=== PATIENT | female | born 1990 | race Caucasian/White ===

== ENCOUNTER 2019-12-29 08:40 | Day surgery (SDC) | payer MEDICAID, SELFPAY ==
[2019-12-29 08:53] VITALS: BP 103/63; PULSE 68; RESP 16; TEMP 36.2; O2SAT 100
--- NOTE | 2019-12-29 09:01 | ANES.PREANE2 ---
Pre-Anesthetic Assessment Pre-Anesthetic Assessment: Height/Weight: Height 1.57 m Weight 77.111 kg Preop Diagnosis: Bilateral carpal tunnel Proposed Procedure: Operation Date: 12/29/19 10:00 Proposed Procedures p Right Carpal Tunnel Release/Left Carpal Tunnel cortisone injection [id number] G56.03(Right) - Edmundo Ohara MD Familial anesthetic complications: None Was Beta Ave taken within 24 hours: N/A Last intake: NPO > 8 hrs Social: Social History: Tobacco Exam: Pre-Anes Outpt Exam: alert, oriented x 3, clear to auscultation bilaterally and regular rate & rhythm Airway: Cervical ROM: WNL MP: 2 Dentition: Partials Anesthetic Plan: ASA status: 2 Anesthesia: MAC and Regional (specify below) Risk of > 500 ml blood loss (7ml/kg in children): No Other Pertinent Information: Last took phentermine on december 23 (approximately 7 days ago) PFSH Anesthesia Female Reproductive History: Date of last menstrual period: 12/07/19 Data Anesthesia Cardiac Studies: No Data to Display
[2019-12-29] MEDS: sodium chloride 0.9% 1,000 ML 30 ML IV (09:19)
[2019-12-29 09:23] LABS: OR HCG Qualitative Urine Negative (Negative)
--- NOTE | 2019-12-29 09:45 | W.PM.OPSUD ---
Surgery/Procedure H&P Update DATE OF PROCEDURE: December 29, 2019 DATE H&P PERFORMED: 12/21/19 H&P UPDATE INFORMATION: I have reviewed H&P completed within last 30 days and No changes to prior documentation PREOP DIAGNOSIS: Bilateral carpal tunnel PLANNED PROCEDURE: Operation Date: 12/29/19 10:00 Proposed Procedures p Right Carpal Tunnel Release/Left Carpal Tunnel cortisone injection [id number] G56.03(Right) - Edmundo Ohara MD
[2019-12-29] MEDS: betamethasone susp 6 mg/mL 5 mL 1.5 MG IM (10:32)
[2019-12-29 10:51] VITALS: BP 111/63; PULSE 69; RESP 16; TEMP 36.2; O2SAT 95
--- NOTE | 2019-12-29 10:55 | P.OP_ITS ---
Operative Report Date of procedure: December 29, 2019 Pre-op Diagnosis: Bilateral carpal tunnel Post-op diagnosis: same Procedure Done: Right carpal tunnel release, injection left carpal tunnel Pathology: none sent Surgeon: Edmundo Ohara Anesthesia: Nerve Block (Husam block) Estimated blood loss (mL): 0 Tourniquet time (min): 31 Complications: None Findings: No masses or space-occupying lesions were seen in the right carpal angeline nicolasa Condition: stable Disposition: same day Procedure: Patient was taken to the operating room and anesthesia provided by the anesthesia service. She was prepped and draped with the arm exposed. A timeout was performed. A 3 cm long incision was made in line with the fourth ray from the distal edge of the carpal tunnel extending proximally. The subcutaneous fat and palmar fascia was divided with a scalpel blade. Under loupe magnification the ulnar neurovascular bundle was identified distally. A hemostat could be passed under the transverse carpal ligament allowing the distal 25% to be divided. A slotted guide was then passed beneath the transverse carpal ligament and the middle 50% divided. Blunt scissors were then passed over the guide freeing the proximal ligament. The tourniquet was deflated. Hemostasis provided with electrocautery. Wound edges were infiltrated with 10 cc of a half percent Marcaine solution. Skin edges were reapproximated with 3-0 Prolene. Sterile dressings were applied. A 27-gauge needle was introduced at the proximal carpal tunnel just ulnar to the palmaris longus tendon.. The carpal tunnel was infiltrated with 1/4 cc of 0.5% Marcaine and 1/4 cc of betamethasone (30mg/5cc) the patient was taken to the recovery room in stable condition
[2019-12-29 11:22] VITALS: BP 114/74; PULSE 61; RESP 18; TEMP 36.2; O2SAT 97
== END 2019-12-29 11:51 | disposition home or self-care (01) ==
PROVIDERS: Anesthesiology; PCP Family Medicine; Visit Provider Orthopaedic Surgery
PROC: (CPT 64721; principal; 2019-12-29 10:00)
DX: G56.03 Carpal tunnel syndrome, bilateral upper limbs (principal)
CPT/HCPCS: 20526; 64721; 12345; 81025; 84703; J0702; J2001; J2250; J2704; J3490; J7030

== ENCOUNTER 2020-04-05 16:42 | Emergency (ER) | payer MEDICAID, SELFPAY ==
--- NOTE | 2020-04-05 16:57 | USCV_ITS ---
Marilu Polanco Age: 29 Gender: F : 1990 Exam Date: 04/05/2020 17:31 Ordering Phys: Kera Sosa MD Technologist: Presley Murcia Exam Location: [facility] – [place] Indication: LUE pain, swelling HISTORY: Left upper extremity swelling and pain. PROCEDURES: Venous duplex imaging was performed in only the left upper extremity. In addition, the basilic vein and cephalic vein. In addition, the radial vein and ulnar vein. FINDINGS: Expansile acute Thrombus is seen in the left cephalic vein extending form the forearm to the wrist. No other areas of DVT or superficial thrombus seen in LUE. CONCLUSIONS Thrombus is seen in the left cephalic vein extending form the forearm to the wrist. Remainder of the vessels in the left upper extremity are patent. Nilo Gaspar MD (Electronically Signed) Final Date: 06 April 2020 11:18 S
--- NOTE | 2020-04-05 18:30 | W.ED.EXTPRO ---
HPI - Extremity Problem General: Chief complaint: Extremity Problem,Nontraumatic Stated complaint: pain in l arm/possible blood clot Time Seen by Provider: 04/05/20 18:30 History of Present Illness: HPI Narrative: Patient is a 29-year-old female comes to the ED with left arm pain. Patient says 2 days ago she started having some pain in her left forearm. Denies any acute trauma or accident to cause pain. 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 Patient was seen a marketing senior recruiter and was put on apixaban 5 mg twice daily since 2014. She stopped taking it a month ago due to cost of medication. Associated symptoms: Deny chest pain, fever(s) or rash Review of Systems Const: Denies: fever(s), chills or fatigue Eyes: Denies: change in vision or eye discomfort ENMT: Denies: throat pain, odynophagia, nasal discharge or nasal congestion Card: Denies: chest pain, palpitations, edema, swelling of feet/ankles, dyspnea on exertion or orthopnea Resp: Denies: dyspnea, productive cough or non-productive cough GI: Denies: abdominal pain, nausea, vomiting, diarrhea, constipation or hematochezia : Denies: flank pain, dysuria or hematuria Musc: Reports: extremity pain (left arm pain-forearm); Denies: neck pain, back pain or extremity swelling Skin/Breast: Denies: rash or new lesions Neuro: Denies: headache(s), numbness in extremities or weakness in extremities [facility] Female Reproductive History: Date of last menstrual period: 12/07/19 Physical Exam Const: COMMON NORMALS: no acute distress, patient oriented x3, healthy appearing and alert GENERAL APPEARANCE: cooperative and comfortable HENMT: COMMON NORMALS: normocephalic HEAD & SCALP: normocephalic MOUTH: Normal oral and palatal mucosa present THROAT: posterior oropharynx normal and uvula midline Eye: COMMON NORMALS: Equal, round and reactive pupils present PUPIL: Yes Equal, round and reactive pupils present Neck/C-Spine: COMMON NORMALS: supple GENERAL: Yes normal visual inspection Resp: COMMON NORMALS: normal respiratory effort, No retractions, No use of accessory muscles and clear to auscultation bilaterally AUSCULTATION: clear to auscultation bilaterally Cardio: COMMON NORMALS: regular rate, regular rhythm, S1 normal heart sound present, S2 normal heart sound present, No gallops present (Cardio), No clicks present (Cardio), No murmurs present (Cardio) and Peripheral pulses 2+ throughout RATE: regular rate RHYTHM: regular rhythm HEART SOUNDS: S1 normal heart sound present and S2 normal heart sound present PERIPHERAL PULSES: Peripheral pulses 2+ throughout GI: COMMON NORMALS: Normal to inspection, nondistended, normoactive bowel sounds present, Soft to palpation, non-tender and no masses PALPATION: Yes Soft to palpation : COMMON NORMALS: Yes no CVA tenderness BLADDER/KIDNEY EXAM: Yes no CVA tenderness Back/Pelvis: COMMON NORMALS: no CVA tenderness Extremity: NARRATIVE EXTREMITY EXAM: Patient has some mild tenderness upon palpation of the dorsal proximal aspect of left forearm. No erythema or warmth. Radial pulse 2+. Neurovascular intact distally. GENERAL: Yes normal exam except as noted Neuro: COMMON NORMALS: patient oriented x3 and moves all extremities SENSORIUM/ORIENTATION: Yes alert Skin: COMMON NORMALS: no rashes or lesions noted GENERAL SKIN EXAM: no rashes or lesions noted and dry skin Course Vital Signs: Vital signs: Vital Signs Temperature 98.2 F 04/05/20 18:35 Pulse Rate 64 04/05/20 19:48 Respiratory Rate 14 04/05/20 19:48 Blood Pressure 108/66 04/05/20 19:48 Pulse Oximetry 99 04/05/20 19:48 MDM - Extremity (Nontraumatic) MDM Narrative: Medical decision making narrative: Patient is a 29-year-old female comes the ED with nontraumatic left forearm pain that started approximately 2 days ago. She has a past medical history of a right upper extremity DVT that occurred in 2014. Patient has been taking Eliquis since. She stopped taking her Eliquis this month due to cost of medication. Physical exam was normal and patient is in no acute distress or pain. Lungs were clear to auscultation bilaterally. Ultrasound venous duplex of left upper extremity-thrombus in the left cephalic vein. Patient was given a dose of Lovenox while here in the ED and sent home with a prescription for Lovenox. She was told to contact her marketing senior recruiter tomorrow morning to discuss being put on different affordable long-term anticoagulant medication. Return to ED precautions given. Patient understood and agree with plan. Imaging Data^: US Vascular: Attestation: I personally reviewed and interpreted this imaging study as follows: Radiologist's impression: Left upper extremity venous duplex?report showed thrombus in the left cephalic vein extending from the forearm to the wrist. no other areas of DVT or superficial thrombus seen in the left upper extremity. Discharge Plan Discharge Patient Disposition: Home Clinical Impression: Acute cephalic vein thrombosis Qualifiers: Laterality: left Qualified Code(s): I82.612 - Acute embolism and thrombosis of superficial veins of left upper extremity Condition: Stable Prescriptions: New enoxaparin 80 mg/0.8 mL syringe 80 mg SUBCUT Q12H 5 Days Qty: 8 RF: 0 No Action Eliquis 5 mg tablet 5 mg PO BID RF: 0 phentermine [Adipex-P] 37.5 mg capsule 37.5 mg PO DAILY RF: 0 Lafe 5-325 mg tablet 1 tab PO Q4H PRN (Reason: pain) Qty: 20 RF: 0 Discharge Orders: Discharge Order (Routine); Ordered 04/05/20 Ordered By: Harrison Beckham Referrals: Mya Burnham MD [Primary Care Provider] - Discharge Diet: Regular Discharge Activity: Resume usual activity Activity Restrictions/Additional Instructions: Follow-up with medical provider as directed. Contact your marketing senior recruiter tomorrow morning to discuss an affordable anticoagulant medication option for long-term use. Take medications as prescribed. Return to the ER or your medical provider if condition worsens. Please read and understand discharge instructions. If any questions, please ask. Discharge Date/Time: 04/05/20 19:50 Coding Level of Care Code ED Rejoiner for Karin Fwd Exam Comprehensive
[2020-04-05 18:35] VITALS: BP 112/76; PULSE 77; RESP 18; TEMP 36.8; O2SAT 97; BMI 30.9
[2020-04-05] MEDS: enoxaparin 120 mg/0.8 mL Syringe SUBCUT (19:32)
[2020-04-05 19:48] VITALS: BP 108/66; PULSE 64; RESP 14; O2SAT 99
== END 2020-04-05 19:50 | disposition home or self-care (01) ==
PROVIDERS: Emergency Provider Physician Assistant; PCP Family Medicine
DX: I82.612 Acute embolism and thrombosis of superficial veins of left upper extremity (principal); Z79.01 Long term (current) use of anticoagulants
CPT/HCPCS: 12345; 93971; 96372; 99281; 99283; J1650

== ENCOUNTER 2022-04-04 17:25 | Emergency (ER) | payer MEDICAID, SELFPAY ==
[2022-04-04 18:34] VITALS: BP 123/75; PULSE 85; RESP 16; TEMP 36.9; O2SAT 98; BMI 35.4
--- NOTE | 2022-04-04 18:46 | USR_ITS ---
PROCEDURE INFORMATION: Exam: US Duplex Left Upper Extremity Veins, Limited Exam date and time: 04/04/2022 8:04 PM Age: 31 years old Clinical indication: Arm, upper; Patient HX: History of pulmonary emboli, beginning 2013. History of multiple bilateral upper extremity dvts beginning 2013. She is taking eliquist now. C/O left lateral neck pain, concern for dvt; Additional info: Left upper extremity swelling and pain TECHNIQUE: Imaging protocol: Real-time Duplex ultrasound of the Left Upper Extremity with 2-D marie scale, color Doppler flow and spectral waveform analysis with image documentation. Limited exam focused on the left upper extremity veins. COMPARISON: No relevant prior studies available. FINDINGS: Left deep veins: Unremarkable. Axillary and brachial veins are patent throughout without thrombus. Normal Doppler waveforms. Normal compressibility and/or augmentation response. Visualized internal jugular and subclavian veins are patent. Left superficial veins: Unremarkable. Visualized cephalic and basilic veins are patent without thrombus. Soft tissues: Unremarkable. US/[place] [id number] IMPRESSION: No evidence of deep vein thrombosis.
[2022-04-04 20:13] LABS: Basophils % 0.4 %; Eosinophils # 0.1 10^3/uL (0.0-0.8); Eosinophils % 1.2 %; Hematocrit 45.7 % (37.0-47.0); Hemoglobin 14.3 g/dL (11.5-15.3); Lymphocytes # 2.7 10^3/uL (0.8-4.8); Lymphocytes % 33.7 %; Mean Corpuscular HGB Conc 31.3 g/dL (30.0-36.0); Mean Corpuscular Hemoglobin 26.6 pg (28.0-34.0); Mean Corpuscular Volume 85.1 fl (81-99); Mean Platelet Volume 9.9 fL (7.4-10.4); Monocytes # 0.6 10^3/uL (0.2-0.9); Monocytes % 6.9 %; Neutrophils % 57.7 %; Nucleated Red Blood Cells % 0 %; Platelet Count 188 10^3/cmm (130-400); Red Blood Count 5.37 10^6/uL (4.1-5.3); Red Cell Distribution Width 12.4 % (12.1-15.1); White Blood Count 8.1 10^3/uL (4.0-10.0)
[2022-04-04 20:24] LABS: INR 1.05 (0.8-1.2)
[2022-04-04 20:39] LABS: Alanine Aminotransferase 18 U/L (0-33); Albumin Level 3.8 g/dL (3.5-5.2); Alkaline Phosphatase 93 U/L (35-105); Blood Urea Nitrogen 7 mg/dL (6-20); Calcium 9.1 mg/dL (8.5-10.5); Carbon Dioxide 21 mmol/L (22-29); Chloride 104 mmol/L (98-107); Globulin 3.7 g/dL (1.3-4.6); Glomerular Filtration Rate 82.6 mL/min (90-130); Glucose 70 mg/dL (65-115); Osmolality Calculated 282 mOsm/kg (285-295); Sodium 138 mmol/L (136-145); Total Bilirubin 0.3 mg/dL (0.15-1.2); Total Protein 7.5 g/dL (6.6-8.7)
[2022-04-04 20:43] LABS: Anion Gap 16.7 (5-19); Aspartate Amino Transferase 18 U/L (0-32); Potassium 3.7 mmol/L (3.5-5.1)
== END 2022-04-04 22:44 | disposition left against medical advice (07) ==
PROVIDERS: Emergency Provider Family Medicine; PCP Family Medicine
DX: Z53.21 Procedure and treatment not carried out due to patient leaving prior to being seen by health care provider (principal)
CPT/HCPCS: 36415; 80053; 85025; 85610; 93971

== ENCOUNTER 2023-05-25 10:29 | Emergency (ER) | payer MEDICAID, SELFPAY ==
[2023-05-25 11:02] VITALS: BP 143/83; PULSE 76; RESP 16; TEMP 36.7; O2SAT 98; BMI 35.4
--- NOTE | 2023-05-25 12:28 | XRR_ITS ---
PROCEDURE INFORMATION: Exam: XR Left Hand Exam date and time: 05/25/2023 12:56 PM Age: 33 years old Clinical indication: Injury or trauma; Other: Crushing accident; Left; Ring finger; Additional info: Tauma left ring finger TECHNIQUE: Imaging protocol: Radiologic exam of the left hand. Views: 1 or 2 views. COMPARISON: No relevant prior studies available. FINDINGS: Bones/joints: There is a comminuted fracture involving the distal tuft of the left 4th digit. There is vertical extension from the distal tuft into the more proximal aspect of the shaft of this phalanx. It does not appear to extend into the D IP joint on these images. No additional fractures are detected. Soft tissues: No radiopaque foreign bodies are detected. XR/XR hand LT 2V [id number] IMPRESSION: Comminuted fracture distal phalanx 4th digit as described.
[2023-05-25] MEDS: clindamycin 150 mg Capsule 300 MG PO (12:42)
[2023-05-25] MEDS: ketorolac 60 mg/2 mL INJ IM (12:43)
--- NOTE | 2023-05-25 13:43 | W.ED.DENTAL ---
HPI - Dental/Oral General: Chief complaint: Dental/Oral Stated complaint: jaw/mouth pain Time Seen by Provider: 05/25/23 12:05 Source: patient Mode of arrival: ambulatory Limitations: no limitations History of Present Illness: This 35-year-old female presents to the ER with tooth ache that started 3 days ago. Pain is located in the right upper tooth. Patient denies fever, nausea or vomiting. She has not seen a dentist in a while because she has no insurance. Patient also reports pain in the left ring finger that started 2 weeks ago. She was attaching a brush hog to the back of a trailer when a metal bar smashed the finger. She has not seen any care provider since then. She wants the finger to be evaluated. Associated symptoms: Denies tongue swelling Review of Systems Const: Denies: chills, body aches or change in appetite Eyes: Denies: change in vision or eye discharge ENMT: Reports: dental pain; Denies: throat pain or nasal discharge Card: Denies: chest pain or lightheadedness : Denies: dysuria Musc: Reports: other (left ring finger pain); Denies: neck pain or back pain Neuro: Denies: headache(s) or weakness in extremities Psych: Denies: depression Hamzah/Lymph: Denies: easy bruising All/Imm: Denies: urticaria, tongue swelling or facial swelling Physical Exam Const: COMMON NORMALS: no acute distress, patient oriented x3, no limitations and alert HENMT: COMMON NORMALS: normocephalic HEAD & SCALP: normocephalic TEETH & GINGIVA: Yes caries, Yes poor dentition and Yes teeth discoloration OTHER: Patient has widespread dental caries and tooth erosion down to the gumline. She has partial dentures. There is redness and swelling of the gum surrounding the right upper canine. There is no fluctuance or sign of abscess collection. Eye: COMMON NORMALS: EOMs intact bilaterally Neck/C-Spine: COMMON NORMALS: full ROM and supple Chest: COMMONS NORMALS: normal inspection of the chest Resp: COMMON NORMALS: normal respiratory effort, No retractions, No use of accessory muscles and clear to auscultation bilaterally AUSCULTATION: clear to auscultation bilaterally Cardio: COMMON NORMALS: regular rate, regular rhythm and No murmurs present (Cardio) RATE: regular rate RHYTHM: regular rhythm GI: COMMON NORMALS: Normal to inspection, nondistended, normoactive bowel sounds present and non-tender : COMMON NORMALS: Yes no CVA tenderness BLADDER/KIDNEY EXAM: Yes no CVA tenderness Back/Pelvis: COMMON NORMALS: no CVA tenderness and no thoracic nor lumbar tenderness Extremity: GENERAL: Yes normal exam except as noted OTHER: There is bruising and discoloration of the distal third of the left ring finger. Nail is intact. There are no open wounds. Neuro: COMMON NORMALS: patient oriented x3 and no focal motor deficits SENSORIUM/ORIENTATION: Yes alert Psych: COMMON NORMALS: mental status grossly normal and cooperative Course Vital Signs: Vital signs: Vital Signs Temperature 98.0 F 05/25/23 11:02 Pulse Rate 72 05/25/23 13:45 Respiratory Rate 16 05/25/23 11:02 Blood Pressure 113/77 05/25/23 13:45 Pulse Oximetry 100 05/25/23 13:45 Oxygen Delivery Me thod Room Air 05/25/23 13:45 MDM - Dental/Oral Medical Decision Making Medical decision making: Patient presents with pain in the right upper tooth and injury to the left hand. Pain started 3 days ago and injury to the left hand happened 2 weeks ago. Exam reveals no sign of tooth abscess. However patient does have widespread dental caries and tooth erosion down to the gumline. She will be treated with antibiotics but she needs to see a dentist as soon as possible. X-ray of the left hand reveals comminuted fracture of the distal phalanx of the fourth digit. It will be placed in a danya strap and patient will follow-up with her primary care provider for reevaluation. Reasons to return were discussed. Lab Data Radiology Impressions Hand X-Ray 05/25/23 12:28 IMPRESSION: Comminuted fracture distal phalanx 4th digit as described. All radiology interpretation(s) finalized by discharge Discharge Plan Discharge Patient Disposition: Home Clinical Impression: Dental caries, Toothache, Tooth infection, Fracture of distal phalanx of finger of left hand Condition: Stable Prescriptions: New tramadol 50 mg tablet 50 mg PO Q6H PRN (Reason: pain) Qty: 30 0RF clindamycin HCl 300 mg capsule 300 mg PO Q6H 7 Days Qty: 28 0RF No Action phentermine [Adipex-P] 37.5 mg capsule 37.5 mg PO DAILY Rx Instructions: must administer 30 minutes before or 1-2 hours after breakfast Eliquis 5 mg tablet 5 mg PO BID Discharge Orders: Discharge ED (Routine); Ordered 05/25/23 Ordered By: Kristin Saenz Discharge Diet: Usual diet Discharge Activity: Resume usual activity Patient Instructions: Opioid Safety, Pain Management Activity Restrictions/Additional Instructions: Take clindamycin and tramadol as prescribed. Maintain good oral hygiene by brushing at least twice a day and flossing at least once daily. Follow-up with a dentist as soon as possible. Follow-up with your primary care physician for reevaluation of your left ring finger. Return if you develop any new or worsening symptoms. Coding Level of Care Code ED Substation Designer for Karin Redmond
[2023-05-25 13:45] VITALS: BP 113/77; PULSE 72; O2SAT 100
== END 2023-05-25 14:19 | disposition home or self-care (01) ==
PROVIDERS: Emergency Provider Family Medicine
DX: K02.9 Dental caries, unspecified (principal); K04.7 Periapical abscess without sinus; S62.635A Displaced fracture of distal phalanx of left ring finger, initial encounter for closed fracture; W23.0XXA Caught, crushed, jammed, or pinched between moving objects, initial encounter
CPT/HCPCS: 73120; 96372; 99284; J1885

== ENCOUNTER 2024-08-14 21:04 | Emergency (ER) | payer MEDICAID, SELFPAY ==
[2024-08-14 21:10] VITALS: BP 138/89; PULSE 83; RESP 18; TEMP 36.8; O2SAT 99; BMI 35.4
[2024-08-14 21:51] LABS: D Dimer 0.33 ug/mLFEU (0-0.59)
[2024-08-14 22:39] VITALS: BP 124/83; PULSE 82; O2SAT 98
--- NOTE | 2024-08-14 22:49 | W.ED.EXTPRO ---
HPI - Extremity Problem General: Chief complaint: Extremity Problem,Nontraumatic Stated complaint: blood clot in back of right leg Time Seen by Provider: 08/14/24 21:15 History of Present Illness: This patient is a 34-year-old white female who presents to the ER complaining of pain behind the right knee. Patient is concerned she may have a blood clot. She states it feels like a prior blood clot she had in her right upper arm. Patient is on Eliquis. She is not having any chest pain or shortness of breath. Related Data Home Medications ?Medication ?Instructions ?Recorded ?Confirmed phentermine 37.5 mg capsule 37.5 mg PO DAILY 12/21/19 05/25/23 (Adipex-P) apixaban 5 mg tablet (Eliquis) 5 mg PO BID 05/25/23 05/25/23 Previous Rx's ?Medication ?Instructions ?Recorded tramadol 50 mg tablet 50 mg PO Q6H PRN pain #30 tabs 05/25/23 Allergies Allergy/AdvReac Type Severity Reaction Status Date / Time Penicillins Allergy Severe throat Verified 08/14/24 21:10 darshana rob Review of Systems General: Reports: 10 or more systems reviewed and unremarkable except in HPI and below Musc: Reports: other (Right posterior leg pain) [facility] Female Reproductive History: Date of last menstrual period: 08/11/24 Physical Exam Const: COMMON NORMALS: no acute distress, patient oriented x3 and no limitations GENERAL APPEARANCE: cooperative and comfortable HENMT: COMMON NORMALS: normocephalic, atraumatic, Normal nasal mucous membranes and turbinates present, moist oral mucous membranes and oropharynx normal HEAD & SCALP: normal to inspection, normocephalic and atraumatic FACE & SINUS: normal facial exam NOSE: Normal nasal mucous membranes and turbinates present Eye: COMMON NORMALS: Equal, round and reactive pupils present, EOMs intact bilaterally and conjunctivae normal GENERAL EYE: appearance normal, both eyes and all related structures CONJUNCTIVA: Yes conjunctivae normal PUPIL: Yes Equal, round and reactive pupils present Neck/C-Spine: COMMON NORMALS: supple and no JVD Chest: COMMONS NORMALS: normal inspection of the chest Resp: COMMON NORMALS: normal respiratory effort and clear to auscultation bilaterally AUSCULTATION: clear to auscultation bilaterally Cardio: COMMON NORMALS: no JVD, regular rate, regular rhythm, No gallops present (Cardio), No murmurs present (Cardio) and No rub (Cardio) RATE: regular rate RHYTHM: regular rhythm GI: COMMON NORMALS: Normal to inspection, nondistended, normoactive bowel sounds present, Soft to palpation and non-tender AUSCULTATION: Yes normoactive bowel sounds PALPATION: Yes Soft to palpation : COMMON NORMALS: Yes no CVA tenderness BLADDER/KIDNEY EXAM: Yes no CVA tenderness Back/Pelvis: COMMON NORMALS: no CVA tenderness and thoracic and lumbar spine normal to inspection Extremity: COMMON NORMALS: normal to inspection Neuro: COMMON NORMALS: patient oriented x3 and CN's II-XII intact bilaterally Psych: COMMON NORMALS: mental status grossly normal, Normal thought process present and cooperative THOUGHT PROCESS: Normal thought process present Skin: COMMON NORMALS: no rashes or lesions noted, turgor normal and no jaundice GENERAL SKIN EXAM: no rashes or lesions noted and turgor normal Course Vital Signs: Vital signs: Vital Signs Temperature 98.2 F 08/14/24 21:10 Pulse Rate 82 08/14/24 22:39 Respiratory Rate 18 08/14/24 21:10 Blood Pressure 124/83 08/14/24 22:39 Pulse Oximetry 98 08/14/24 22:39 Oxygen Delivery Me thod Room Air 08/14/24 21:10 MDM - Extremity (Nontraumatic) Medical Decision Making D-dimer was 0.33. Patient was reassured. Pain is likely musculoskeletal. Follow-up with primary care physician as needed. She was discharged in stable condition. Lab Data Laboratory Results D-Dimer 0.33 ug/mLFEU (0-0.59) 08/14/24 21:26 No radiology studies performed this visit Discharge Plan Discharge Patient Disposition: Home Clinical Impression: Leg pain, right Condition: Stable Prescriptions: No Action phentermine [Adipex-P] 37.5 mg capsule 37.5 mg PO DAILY Rx Instructions: must administer 30 minutes before or 1-2 hours after breakfast Eliquis 5 mg tablet 5 mg PO BID tramadol 50 mg tablet 50 mg PO Q6H PRN (Reason: pain) Qty: 30 0RF Discharge Orders: Discharge ED (Routine); Ordered 08/14/24 Ordered By: Marc Chirinos Activity Restrictions/Additional Instructions: Follow-up with your primary care provider next week for recheck. Print Language: Armenian Coding Level of Care Code ED Ethanol Maintenance Mechanic for Karin Redmond
== END 2024-08-14 22:30 | disposition home or self-care (01) ==
PROVIDERS: Emergency Provider Emergency Medicine
DX: M79.604 Pain in right leg (principal); Z79.01 Long term (current) use of anticoagulants
CPT/HCPCS: 85378; 99283